=== PATIENT | male | born 1970 | race Asian ===

== ENCOUNTER 2016-09-11 12:38 | Outpatient (CLI) | payer BC | END 2016-09-11 19:07 | disposition home or self-care (01) | LOC: SMI 12:38 | PROVIDERS: ATTEND Specialist | DX: S49.92XA Unspecified injury of left shoulder and upper arm, initial encounter (principal); M19.012 Primary osteoarthritis, left shoulder; X58.XXXA Exposure to other specified factors, initial encounter; Y93.89 Activity, other specified; Y92.89 Other specified places as the place of occurrence of the external cause; Y99.8 Other external cause status | CPT/HCPCS: 73221 ==